=== PATIENT | female | born 1985 | race Hispanic/Latino ===

== ENCOUNTER 2017-05-11 16:55 | Inpatient (IN) | payer OTHER ==
[2017-05-11] MEDS ORDERED: Sodium Chloride 0.9% 1,000 ML IV STA (17:33)
--- NOTE | 2017-05-11 17:39 | ED PDOC ---
HPI: Abdomen Time Seen by Provider: 05/11/17 17:23 Chief Complaint (Nursing): Abdominal Pain Chief Complaint (Provider): Abdominal Pain History Per: Patient History/Exam Limitations: no limitations Onset/Duration Of Symptoms: Days (x1) Current Symptoms Are (Timing): Still Present Location Of Pain/Discomfort: RLQ Additional Complaint(s): Thor Friedman is a 31 year old female with previous medical history of endometriosis and asthma, who presents to the emergency department with a complaint of lower right abdominal pain ongoing since this morning. Denied nausea, vomiting, diarrhea, dysuria, hematuria, fever or chills. LMP: 3 weeks ago PMD: César Leavitt MD Past Medical History Reviewed: Historical Data, Nursing Documentation, Vital Signs Vital Signs: Last Vital Signs Temp 99.6 F 05/11/17 17:17 Pulse 119 H 05/11/17 17:17 Resp 16 05/11/17 17:17 BP 165/88 H 05/11/17 17:17 Pulse Ox 100 05/11/17 17:42 - Medical History PMH: Asthma Other PMH: endometriosis - Family History Family History: States: Unknown Family Hx - Allergies Allergies/Adverse Reactions: Allergies Allergy/AdvReac Type Severity Reaction Status Date / Time No Known Allergies Allergy Verified 05/11/17 17:20 Review of Systems ROS Statement: Except As Marked, All Systems Reviewed And Found Negative Constitutional: Negative for: Fever, Chills Gastrointestinal: Positive for: Abdominal Pain (lower right). Negative for: Nausea, Vomiting, Diarrhea Genitourinary Female: Negative for: Dysuria, Hematuria Physical Exam - Reviewed Nursing Documentation Reviewed: Yes Vital Signs Reviewed: Yes - Physical Exam Appears: Positive for: Well, Non-toxic, No Acute Distress Head Exam: Positive for: ATRAUMATIC, NORMAL INSPECTION, NORMOCEPHALIC Cardiovascular/Chest: Positive for: Regular Rate, Rhythm, Chest Non Tender Respiratory: Positive for: Normal Breath Sounds, Accessory Muscle Use. Negative for: Decreased Breath Sounds, Crackles, Rales, Rhonchi, Wheezing, Respiratory Distress Gastrointestinal/Abdominal: Positive for: Bowel Sounds, Soft, Tenderness (mild RLQ). Negative for: Normal Exam, Guarding, Rebound Back: Positive for: Normal Inspection. Negative for: L CVA Tenderness, R CVA Tenderness Neurologic/Psych: Positive for: Alert, Oriented - Laboratory Results Result Diagrams: 05/11/17 18:02 05/11/17 18:02 - ECG O2 Sat by Pulse Oximetry: 100 (RA) Pulse Ox Interpretation: Normal Medical Decision Making Medical Decision Making: Initial Impression: RLQ pain Initial Plan: * CT ABD/pelvis with IV contrast * CMP * Urine * Urine dipstick * CBC * NS 1,000ml IV per 100lms/hr * Toradol 30mg IVP * US transvag Scribe Attestation: Documented by Eliz Morocho, acting as a scribe for Julio Nicolas MD. Provider Scribe Attestation: All medical record entries made by the Scribe were at my direction and personally dictated by me. I have reviewed the chart and agree that the record accurately reflects my personal performance of the history, physical exam, medical decision making, and the department course for this patient. I have also personally directed, reviewed, and agree with the discharge instructions and disposition. Disposition - Clinical Impression Clinical Impression: Abdominal pain - Patient ED Disposition Is Patient to be Admitted: Transfer of Care - Disposition Disposition: Transfer of Care Disposition Time: 19:00 Condition: FAIR Forms: [employer] (Setswana) Patient Signed Over To: Horace Cabrales
[2017-05-11 18:13] LABS: ALB/GLOB RATIO 1.3 (1.0-2.1); ALKALINE PHOSPHATASE 55 U/L (38-126); ALT/SGPT 42 U/L (9-52); AST/SGOT 32 U/L (14-36); BILIRUBIN,TOTAL 0.3 mg/dl (0.2-1.3); BLOOD UREA NITROGEN 11 mg/dl (7-17); CALCIUM 9.2 mg/dL (8.4-10.2); CARBON DIOXIDE 23 mmol/L (22-30); CHLORIDE 106 mmol/L (98-107); GFR AFRICAN-AMERICAN > 60; GLUCOSE,RANDOM 106 mg/dL (65-105); POTASSIUM 3.6 MMOL/L (3.6-5.0); SODIUM 143 mmol/l (132-148); TOTAL PROTEIN 7.8 G/DL (6.3-8.2)
[2017-05-11 18:37] LABS: BASO % 0.2 % (0.0-2.0); EOS # 0.2 K/uL (0.0-0.7); HEMATOCRIT 41.3 % (34.0-47.0); LYMPH # 2.2 K/uL (1.0-4.3); LYMPH % 27.1 % (20.0-40.0); MEAN CELL VOLUME 83.8 fl (81.0-99.0); MEAN CORPUSCULAR HEMOGLOBIN 28.6 pg (27.0-31.0); MEAN CORPUSCULAR HGB CONC 34.2 g/dL (33.0-37.0); MEAN PLATELET VOLUME 7.3 fl (7.2-11.7); MONO # 0.5 K/uL (0.0-0.8); MONO % 5.9 % (0.0-10.0); NEUT # 5.2 K/uL (1.8-7.0); NEUT % 64.8 % (50.0-75.0); NRBC % 0.3 % (0.0-0.0); RED CELL DISTRIBUTION WIDTH 14.3 % (11.5-14.5); WHITE BLOOD COUNT 8.1 K/uL (4.8-10.8)
[2017-05-11] MEDS ORDERED: Iohexol 300 100 ML IJ ONE (19:18)
[2017-05-11] MEDS ORDERED: Sodium Chloride 0.9% 50 ML IV ONE (19:18)
--- NOTE | 2017-05-11 19:32 | ED PDOC ---
- Laboratory Results Result Diagrams: 05/11/17 18:02 05/11/17 18:02 - ECG O2 Sat by Pulse Oximetry: 100 (RA) Pulse Ox Interpretation: Normal Medical Decision Making Medical Decision Making: Time: 1899 --Patient was endorsed to provider by Dr. Julio Nicolas. Pending US and CT results. Time: 2000 --US pelvis FINDINGS: Uterus/cervix: Nabothian cysts in the cervix. Normal endometrial stripe thickness, 0.8 cm. No myometrial mass. Right ovary: Unremarkable. No mass. Normal blood flow. Left ovary: Nonspecific 3 mm echogenic focus in the left ovary without shadowing , potentially a tiny dermoid. Normal blood flow. Free fluid: No free fluid. IMPRESSION: No acute findings. Nonspecific 3 mm echogenic focus in the left ovary without shadowing, potentially a tiny dermoid. Time: 2005 --CT ABD FINDINGS: Lower thorax: No acute findings. ABDOMEN: Liver: The liver is diffusely decreased in density and enlarged, compatible with hepatic steatosis. Gallbladder and bile ducts: The gallbladder is unremarkable. No biliary ductal dilatation. Pancreas: The pancreas is unremarkable. Spleen: The spleen is unremarkable. Adrenals: The adrenal glands are unremarkable. Kidneys and ureters: Symmetric renal enhancement without hydronephrosis. Stomach and bowel: Mild distal colonic diverticulosis without evidence of acute diverticulitis. No evidence of bowel obstruction. No pericolonic inflammatory stranding. Appendix: A normal appendix is identified. PELVIS: Bladder: No focal wall thickening of the urinary bladder. Reproductive: Uterus is unremarkable. No suspicious adnexal lesion seen. ABDOMEN and PELVIS: Intraperitoneal space: No significant peritoneal free fluid. No free peritoneal air. Bones/joints: No acute osseous abnormality. Soft tissues: No soft tissue swelling. Vasculature: Unremarkable. No abdominal aortic aneurysm. Lymph nodes: No enlarged lymph nodes. IMPRESSION: 1. No acute findings. 2. The liver is diffusely decreased in density and enlarged, compatible with hepatic steatosis Time: 2009 --Discussed case with surgical technology instructor, Dr. Yefri Goodrich and fruit or nut grower, Dr. César Leavitt, who will admit patient for intractable pelvic pain to own service. Scribe Attestation: Documented by Eliz Morocho, acting as a scribe for Horace Cabrales MD. Provider Scribe Attestation: All medical record entries made by the Scribe were at my direction and personally dictated by me. I have reviewed the chart and agree that the record accurately reflects my personal performance of the history, physical exam, medical decision making, and the department course for this patient. I have also personally directed, reviewed, and agree with the discharge instructions and disposition. Disposition Doctor Will See Patient In The: Office Counseled Patient/Family Regarding: Studies Performed, Diagnosis, Need For Followup - Clinical Impression Clinical Impression: Abdominal pain - POA Present On Arrival: None - Disposition Disposition: Admitted as In-Patient Disposition Time: 20:30 Condition: FAIR
--- NOTE | 2017-05-11 21:30 | CP.PCM.HP ---
History of Present Illness - History of Present Illness History of Present Illness: H&P CC: abdominal pain HPI: 31F presented to the ED with lower abdominal pain that is worse than her average pain from endometriosis. More pain on R than L side. This morning her pain got worse so she called her Gynocologist who advised her to go to the ED. Pt states her LMP ended 3 days ago. Feels slight nausea. Denies F/C, emesis, chest pain, SOB, hematuria, dysuria, change in bowel habits. 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 Rare EtOH. All: NKDA Meds: Denies Present on Admission - Present on Admission Any Indicators Present on Admission: No Review of Systems - Review of Systems All systems: reviewed and no additional remarkable complaints except (as per HPI ) Past Patient History - Past Social History Smoking Status: Never Smoked - CARDIAC Hx Cardiac Disorders: No - PULMONARY Hx Asthma: Yes - PSYCHIATRIC Hx Substance Use: No Meds Allergies/Adverse Reactions: Allergies Allergy/AdvReac Type Severity Reaction Status Date / Time No Known Allergies Allergy Verified 05/11/17 17:20 Physical Exam - Constitutional Appears: Non-toxic, No Acute Distress - Head Exam Head Exam: ATRAUMATIC, NORMOCEPHALIC - Eye Exam Eye Exam: EOMI. absent: Scleral icterus - ENT Exam ENT Exam: Mucous Membranes Moist Additional comments: trachea midline - Respiratory Exam Respiratory Exam: NORMAL BREATHING PATTERN. absent: Respiratory Distress - Cardiovascular Exam Cardiovascular Exam: RRR, +S1, +S2 - GI/Abdominal Exam GI & Abdominal Exam: Guarding (mild), Soft, Tenderness (R>L lower quadrant). absent: Distended, Firm, Rebound, Rigid - Rectal Exam Rectal Exam: Deferred - Extremities Exam Extremities exam: Positive for: normal capillary refill. Negative for: calf tenderness, pedal edema - Back Exam Back exam: absent: CVA tenderness (L), CVA tenderness (R) - Neurological Exam Neurological exam: Alert, Oriented x3 - Psychiatric Exam Psychiatric exam: Normal Affect, Normal Mood Results - Vital Signs Recent Vital Signs: Last Vital Signs Temp 98.3 F 05/11/17 21:16 Pulse 72 05/11/17 21:16 Resp 18 05/11/17 21:16 BP 124/72 05/11/17 21:16 Pulse Ox 98 05/11/17 21:16 - Labs Result Diagrams: 05/11/17 18:02 05/11/17 18:02 Labs: Laboratory Results - last 24 hr 05/11/17 05/11/17 18:02 18:02 WBC 8.1 RBC 4.93 Hgb 14.1 Hct 41.3 MCV 83.8 MCH 28.6 MCHC 34.2 RDW 14.3 Plt Count 285 MPV 7.3 Neut % (Auto) 64.8 Lymph % (Auto) 27.1 Morgan % (Auto) 5.9 Eos % (Auto) 2.0 Baso % (Auto) 0.2 Neut # 5.2 Lymph # 2.2 Morgan # 0.5 Eos # 0.2 Baso # 0.0 Sodium 143 Potassium 3.6 Chloride 106 Carbon Dioxide 23 Anion Gap 17 BUN 11 Creatinine 0.7 Est GFR ( Amer) > 60 Est GFR (Non-Af Amer) > 60 Random Glucose 106 H Calcium 9.2 Total Bilirubin 0.3 AST 32 ALT 42 Alkaline Phosphatase 55 Total Protein 7.8 Albumin 4.4 Globulin 3.4 Albumin/Globulin Ratio 1.3 - Imaging and Cardiology CT scan - abdomen Status: Image reviewed by me, Report reviewed by me US - transvaginal Status: Image reviewed by me, Report reviewed by me Assessment & Plan - Assessment and Plan (Free Text) Assessment: 31F with abdominal pain due to endometriosis Plan: admit NPO p MN IVF Possible OR tomorrow Labs Analgesia Zofran pepcid
[2017-05-12] MEDS: Potassium Ch 20mEq in D5-1/2NS 1,000 ML IV SCH ×2 (00:11→09:39)
[2017-05-12] MEDS ORDERED: HYDROmorphone 0.5 mg/0.5 ml ISec IVP PRN (00:29)
[2017-05-12 00:34] LABS: PARTIAL THROMBOPLASTIN TIME 32.8 Seconds (25.6-37.1)
--- NOTE | 2017-05-12 08:24 | CT ---
PROCEDURE: CT Abdomen and Pelvis with contrast HISTORY: RLQ pain COMPARISON: None. TECHNIQUE: Contrast dose: 95 mL Omnipaque 300 Radiation dose: Total exam DLP = 1036.11 mGy-cm. This CT exam was performed using one or more of the following dose reduction techniques: Automated exposure control, adjustment of the mA and/or kV according to patient size, and/or use of iterative reconstruction technique. FINDINGS: LOWER THORAX: Unremarkable. LIVER: Hepatomegaly. The liver measures 22.3 cm craniocaudal. Diffusely diminished hepatic attenuation consistent with fatty infiltration. There is focal fatty sparing adjacent to the gallbladder fossa. There is no mass. The contour is smooth. There is no intrahepatic biliary ductal dilatation. GALLBLADDER AND BILE DUCTS: Unremarkable. PANCREAS: Unremarkable. No gross lesion or ductal dilatation. SPLEEN: Unremarkable. ADRENALS: Unremarkable. No mass. KIDNEYS AND URETERS: Unremarkable. No hydronephrosis. No solid mass. VASCULATURE: Unremarkable. No aortic aneurysm. BOWEL: Few scattered colonic diverticula. No evidence of diverticulitis. No bowel obstruction. No significant fecal retention. No abnormal bowel loops otherwise appreciated. APPENDIX: Normal appendix. PERITONEUM: Unremarkable. No free fluid. No free air. LYMPH NODES: Unremarkable. No enlarged lymph nodes. BLADDER: Nondistended REPRODUCTIVE: Normal uterus and adnexae. BONES: No acute fracture. OTHER FINDINGS: None. IMPRESSION: No acute abnormality. No evidence of appendicitis. Hepatomegaly with diffuse fatty infiltration of the liver. No other significant abnormality.
--- NOTE | 2017-05-12 09:56 | US ---
HISTORY: RLQ pain r/o cyst COMPARISON: None available. TECHNIQUE: Transvaginal FINDINGS: UTERUS: Measures 7.8 x 3.9 x 4.7 cm. Normal in size and appearance. No fibroid or other mass lesion seen. ENDOMETRIUM: Measures 7 mm in diameter. Unremarkable. CERVIX: No cervical abnormality identified. RIGHT OVARY: Measures 3.1 x 2.0 x 2.7 cm. No solid mass. Normal flow. LEFT OVARY: Measures 3.0 x 2.1 x 3.7 cm. No solid mass. Normal flow. Punctate nonspecific left ovarian an echogenic focus. FREE FLUID: No significant free fluid noted. OTHER FINDINGS: None. IMPRESSION: No evidence of ovarian torsion. Incidental punctate left ovarian echogenic focus. Otherwise unremarkable. Preliminary interpretation of this examination was reported by [facility] at 8:01 p.m. on 05/11/2017. There is concurrence of this report with the preliminary interpretation.
[2017-05-12] MEDS ORDERED: Bupivacaine 0.5% Inj(30mL) ONE (13:27)
[2017-05-12] MEDS ORDERED: Propofol 10 mg/ml Inj (20 ML) ONE (13:34)
[2017-05-12] MEDS ORDERED: Rocuronium 10 mg/ml (5 ml) ONE (13:34)
[2017-05-12] MEDS ORDERED: Succinylcholine 200 mg/10 ml Inj IV ONE (13:34)
[2017-05-12] MEDS ORDERED: ePHEDrine 50 mg/ml Inj ONE (13:34)
[2017-05-12] MEDS ORDERED: Midazolam 2 MG/2 ML VIAL ONE (13:34)
[2017-05-12] MEDS ORDERED: Lidocaine 4% (Laryng-O-Jet) Kit MM ONE (13:35)
[2017-05-12] MEDS ORDERED: Lactated Ringer's 1,000 ML IV ONE ×2 (14:35→14:45)
[2017-05-12] MEDS ORDERED: Dexamethasone 4 mg/1 ml ONE (15:05)
[2017-05-12] MEDS ORDERED: Neostigmine Methylsulfate 3mg/3ml Syringe IV ONE (15:53)
[2017-05-12] MEDS ORDERED: Neostigmine Methylsulfate 2 MG/2 ML ML IV ONE (15:53)
[2017-05-12] MEDS: HYDROmorphone 0.5 mg/0.5 ml ISec IVP PRN ×2 (17:20→18:00)
[2017-05-12 22:28] VITALS: RESP 17
[2017-05-12 22:30] VITALS: BP 112/67; PULSE 111; TEMP 98.9; O2SAT 97
== END 2017-05-12 23:15 | disposition home or self-care (01) | DRG 761 ==
LOC: H.ER 16:55 → H.ERHOLD 20:37 → H.MEDSURG1 22:28
PROVIDERS: ADMIT Obstetrics & Gynecology Reproductive Endocrinology; ATTEND Obstetrics & Gynecology Reproductive Endocrinology
DX: N80.9 Endometriosis, unspecified (principal); D21.9 Benign neoplasm of connective and other soft tissue, unspecified; J45.909 Unspecified asthma, uncomplicated